=== PATIENT | female | born 1980 | race Caucasian/White ===

== ENCOUNTER → 2016-12-30 | Outpatient (REF) | payer OTHER | LOC: M LABNEURO 11:36 | PROVIDERS: ATTEND Physician Assistant Medical | DX: R51 Headache (principal); M79.641 Pain in right hand ==

== ENCOUNTER 2017-01-05 09:52 | Emergency (ER) | payer OTHER ==
[~2017-01-05] VITALS: Ht 165.1 cm; Wt 79.4 kg
[2017-01-05] MEDS ORDERED: VITA250011 SL (10:11)
[2017-01-05] MEDS ORDERED: OXYC15TA76 PO (10:11)
[2017-01-05] MEDS ORDERED: CALC600T7 PO (10:11)
[2017-01-05] MEDS ORDERED: RIBO100C PO (10:11)
[2017-01-05] MEDS ORDERED: MULT1TAB10 PO (10:11)
[2017-01-05] MEDS ORDERED: VALT500T PO (10:11)
[2017-01-05] MEDS ORDERED: ESTE500T4 PO (10:11)
[2017-01-05] MEDS ORDERED: MAGN250T11 PO (10:11)
[2017-01-05] MEDS ORDERED: CETI10TA PO (10:11)
[2017-01-05] MEDS ORDERED: INTRTAB PO (10:11)
[2017-01-05] MEDS ORDERED: OMEP40CA2 PO (10:11)
[2017-01-05] MEDS ORDERED: CYCL5TA PO (10:11)
[2017-01-05] MEDS ORDERED: COLA100C PO (10:11)
[2017-01-05] MEDS ORDERED: SING4GRA PO (10:11)
[2017-01-05] MEDS ORDERED: MIRA33504 PO (10:11)
[2017-01-05] MEDS ORDERED: VITA500046 PO (10:12)
--- NOTE | 2017-01-05 11:23 | REP ---
Right lower extremity Duplex Doppler venous ultrasound: Real time compression and duplex Doppler interrogation of the right lower extremity deep venous system is performed. The right common femoral, superficial femoral and popliteal veins are fully compressible with transducer pressure and demonstrate normal spontaneous and phasic flow, without evidence of deep venous thrombosis. Impression: No evidence of deep venous thrombosis of the right lower extremity femoral popliteal venous system. Signed by Cordell Glynn MD 01/05/2017 11:14 A
[2017-01-05 11:40] VITALS: BP 124/70
== END 2017-01-05 11:42 | disposition home or self-care (01) ==
LOC: M ED 10:54
DX: M79.651 Pain in right thigh (principal); E73.9 Lactose intolerance, unspecified; Z79.899 Other long term (current) drug therapy

== ENCOUNTER 2017-01-17 19:00 | Emergency (ER) | payer OTHER ==
[~2017-01-17] VITALS: Ht 165.1 cm; Wt 77.1 kg
[~2017-01-17 19:00] MED LIST: CALC600T7 PO; CETI10TA PO; COLA100C3 PO; CYCL5TA PO; ESTE500T4 PO; INTRTAB PO; MAGN250T11 PO; MIRA33504 PO; MULT1TAB10 PO; OMEP40CA2 PO; OXYC15TA76 PO; RIBO100C PO; SING4GRA PO; VALT500T PO; VANCOMYCIN HCL 1,000 MG, VIAL MATE ADAPTER 1 EACH in D5W 250 ML IV ONE; VITA250011 SL; VITA500046 PO
[2017-01-17] MEDS ORDERED: cefTRIAXone SOD 2 GM in D5W MINI-BAG PLUS 50 ML IV ONE (19:45)
[2017-01-17] MEDS ORDERED: NS 1,000 ML IV SCH (19:45)
[2017-01-17 20:07] LABS: BASO % 0.3 % (0.0-1.0); EOS # 0.3 K/mm3 (0.0-0.50); LARGE UNSTAINED CELL # 0.1 K/mm3 (0.0-0.4); LARGE UNSTAINED CELL % 0.8 % (0.0-4.0); LYMPH # 2.2 K/mm3 (1.5-4.5); LYMPH % 16.2 % (24.0-44.0); MEAN CORPUSCULAR HEMOGLOBIN 35.4 pg (27.0-33.0); MEAN CORPUSCULAR HGB CONC 33.2 g/dl (32.0-36.5); MEAN CORPUSCULAR VOLUME 106.7 fl (80.0-96.0); MONO # 0.6 K/mm3 (0.0-0.8); MONO % 4.4 % (0.0-5.0); NEUTROPHILS # 9.6 K/mm3 (1.8-7.7); NEUTROPHILS % 76.2 % (36.0-66.0); PLATELET COUNT, AUTOMATED 276 k/mm3 (150-450); RED CELL DISTRIBUTION WIDTH 13.4 % (11.5-14.5); WHITE BLOOD COUNT 12.6 K/mm3 (4.0-10.0)
[2017-01-17] MEDS ORDERED: VANCOMYCIN HCL 1,000 MG, VIAL MATE ADAPTER 1 EACH in D5W 250 ML IV ONE (20:15)
[2017-01-17 20:23] LABS: ANION GAP 6 MEQ/L (8-16); BLOOD UREA NITROGEN 7 MG/DL (7-18); CALCIUM LEVEL 8.6 MG/DL (8.5-10.1); CARBON DIOXIDE LEVEL 29 MEQ/L (21-32); CHLORIDE LEVEL 104 MEQ/L (98-107); CREATININE FOR GFR 0.68 MG/DL (0.55-1.02); GLOMERULAR FILTRATION RATE > 60.0 (>60); GLUCOSE, FASTING 106 MG/DL (70-105); SODIUM LEVEL 139 MEQ/L (136-145)
[2017-01-17 20:28] LABS: ERYTHROCYTE SEDIMENTATION RATE 71 mm/hr (0-20)
[2017-01-17] MEDS ORDERED: ISOVUE-370 76% 100ML VIAL (Q9967) As Ordered ONE (20:51)
--- NOTE | 2017-01-17 21:50 | REPUSA ---
CT of the abdomen and pelvis with contrast Clinical statement: Pain. Possible abdominal wall abscess. Technique: Multiple axial CT images were obtained from the base of the lungs through the floor of the pelvis utilizing 5 mm axial slices after administration of nonionic intravenous contrast. Coronal an d sagittal reconstructions were also obtained. Comparison: 11/17/2015. Findings: Chest: The visualized lung bases are clear. Abdomen: There is a loculated fluid collection in the midline of the anterior abdominal wall around t he umbilicus, measuring 2.2 x 11.4 cm. A second loculated fluid collection is seen at this same level in the right lateral subcutaneous tissues, measuring 6.4 x 3.1 cm. Surgical drains in place within t he lateral fluid collection. Diffuse infiltrative changes are also seen within the abdominal wall. Th e liver, spleen, pancreas, kidneys, and adrenal glands are unremarkable. The aorta is within normal l imits. There is no evidence of abdominal lymphadenopathy or ascites. Pelvis: The bowel is unremarkable, with no obstructive or inflammatory changes. The urinary bladder i s within normal limits. The other pelvic structures appear grossly intact. There is no evidence of pe lvic lymphadenopathy or ascites. Bones: There are no suspicious osseous abnormalities seen. Impression: 1. At least two large subcutaneous loculated fluid collections in the abdominal wall as described, on e in the midline adjacent to the umbilicus, and one in the right lateral abdominal wall. A surgical d rain is seen within the lateral fluid collection. Diffuse infiltrative changes are also noted. The fi ndings could represent abscesses. Follow-up is suggested as clinically indicated. 2. No acute intra-abdominal abnormality appreciated.
[2017-01-17] MEDS ORDERED: BACT800T5 PO (22:44)
[2017-01-17] MEDS ORDERED: KEFL500C7 PO (22:44)
[2017-01-17 22:57] VITALS: BP 111/62
== END 2017-01-17 23:03 | disposition home or self-care (01) ==
LOC: M ED 20:04
DX: L02.211 Cutaneous abscess of abdominal wall (principal)
CPT/HCPCS: 74177; 80048; 85025; 85652; 86140; 96361; 96365; 96367; 96375; 99282; J0696; J3370; Q9967

== ENCOUNTER → 2017-02-20 | Outpatient (REF) | payer OTHER ==
[~2017-02-20] MED LIST changes: +BACT800T5 PO; +KEFL500C7 PO; -VANCOMYCIN HCL 1,000 MG, VIAL MATE ADAPTER 1 EACH in D5W 250 ML IV ONE
== END ==
LOC: M LAB REF 13:05 → EEVIPCON 13:05
PROVIDERS: ATTEND Physician Assistant Medical
DX: L02.91 Cutaneous abscess, unspecified (principal)

== ENCOUNTER → 2017-09-14 | Outpatient (REF) | payer OTHER ==
[~2017-09-14] MED LIST changes: -COLA100C3 PO; +COLA100C5 PO; -CYCL5TA PO; +CYCL5TAB PO; +KEFL500C17 PO; -KEFL500C7 PO
== END ==
LOC: M LAB REF 18:08
PROVIDERS: ATTEND Physician Assistant
DX: R30.0 Dysuria (principal)

== ENCOUNTER → 2017-11-23 | Outpatient (CLI) | payer OTHER ==
[~2017-11-23] MED LIST changes: -BACT800T5 PO; -CALC600T7 PO; -CETI10TA PO; -COLA100C5 PO; -CYCL5TAB PO; +E-Z-GAS II EFFERVESCENT PACKET (SODIUM BICARB./CITRIC ACID/SIMETHICONE) As Ordered; +E-Z-HD 98% w/w 340GM SUSP BTL As Ordered; +E-Z-PAQUE 96% w/w SUSP 176GM BTL As Ordered; -ESTE500T4 PO; -INTRTAB PO; -KEFL500C17 PO; -MAGN250T11 PO; -MIRA33504 PO; -MULT1TAB10 PO; -OMEP40CA2 PO; -OXYC15TA76 PO; -RIBO100C PO; -SING4GRA PO; -VALT500T PO; -VITA250011 SL; -VITA500046 PO
== END ==
LOC: M RAD 09:30
DX: K21.9 Gastro-esophageal reflux disease without esophagitis (principal); Z98.84 Bariatric surgery status
CPT/HCPCS: 74241

== ENCOUNTER 2017-12-17 10:35 | Outpatient (RCR) | payer OTHER | END 2018-01-16 | LOC: M PT 10:35 | DX: Z51.89 Encounter for other specified aftercare (principal); M54.2 Cervicalgia; M54.6 Pain in thoracic spine ==

== ENCOUNTER → 2018-03-09 | Outpatient (REF) | payer OTHER ==
[2018-03-09 22:05] LABS: APPEARANCE, URINE CLEAR (CLEAR); BACTERIA, URINE AUTO 2+ (NEGATIVE); BILIRUBIN, URINE AUTO NEGATIVE (NEGATIVE); BLOOD, URINE BLOOD 1+ (NEGATIVE); COLOR, URINE STRAW (YELLOW); GLUCOSE, URINE (UA) AUTO NEGATIVE (NEGATIVE); KETONE, URINE AUTO NEGATIVE (NEGATIVE); LEUKOCYTE ESTERASE, URINE AUTO 1+ (NEGATIVE); NITRITE, URINE AUTO NEGATIVE (NEGATIVE); PROTEIN, URINE AUTO NEGATIVE (NEGATIVE); RBC, URINE AUTO 4 /HPF (0-3); SPECIFIC GRAVITY URINE AUTO 1.004 (1.002-1.035); SQUAMOUS EPITHELIAL CELL UR AU 0 /HPF (0-6); UROBILINOGEN, URINE AUTO 0.2 mg/dL (0.0-2.0); WBC, URINE AUTO 19 /HPF (0-3)
== END ==
LOC: M LAB REF 21:24
DX: N39.0 Urinary tract infection, site not specified (principal)

== ENCOUNTER 2018-05-11 09:58 | Outpatient (RCR) | payer OTHER | END 2018-05-18 | LOC: M PT 09:58 | DX: Z51.89 Encounter for other specified aftercare (principal); M54.30 Sciatica, unspecified side | CPT/HCPCS: 97010 ==

== ENCOUNTER 2018-05-20 09:44 | Outpatient (RCR) | payer OTHER | END 2018-06-18 | LOC: M PT 09:44 | DX: Z51.89 Encounter for other specified aftercare (principal); M54.30 Sciatica, unspecified side | CPT/HCPCS: 97110 ==

== ENCOUNTER 2018-09-11 08:35 | Emergency (ER) | payer OTHER ==
[2018-09-11 09:16] LABS: BASO % 0.7 % (0.0-1.0); EOS # 0.1 10^3/uL (0.0-0.50); EOS % 2.3 % (0.0-3.0); HEMATOCRIT 41.4 % (36.0-47.0); HEMOGLOBIN 14.5 g/dl (12.0-15.5); IMMATURE GRANULOCYTE % 0.2 % (0-3.0); LYMPH # 2.4 10^3/uL (1.5-4.5); LYMPH % 41.9 % (24.0-44.0); MEAN CORPUSCULAR HEMOGLOBIN 36.3 pg (27.0-33.0); MEAN CORPUSCULAR VOLUME 103.5 fl (80.0-96.0); MONO # 0.4 10^3/uL (0.0-0.8); MONO % 7.1 % (0.0-5.0); NEUTROPHILS # 2.7 10^3/uL (1.8-7.7); NEUTROPHILS % 47.8 % (36.0-66.0); PLATELET COUNT, AUTOMATED 204 10^3/uL (150-450); RED CELL DISTRIBUTION WIDTH 11.7 % (11.5-14.5); WHITE BLOOD COUNT 5.6 10^3/uL (4.0-10.0)
[2018-09-11] MEDS: NS 1,000 ML IV (09:27)
[2018-09-11 09:32] LABS: ALBUMIN 3.9 GM/DL (3.2-5.2); ALBUMIN/GLOBULIN RATIO 1.15 (1.00-1.93); ALKALINE PHOSPHATASE 41 U/L (45-117); ALT/SGPT 23 U/L (12-78); AMYLASE 51 U/L (25-115); ANION GAP 6 MEQ/L (8-16); AST/SGOT 25 U/L (7-37); BILIRUBIN,DIRECT 0.1 MG/DL (0.0-0.2); BILIRUBIN,TOTAL 0.4 MG/DL (0.2-1.0); BLOOD UREA NITROGEN 15 MG/DL (7-18); CARBON DIOXIDE LEVEL 28 MEQ/L (21-32); CHLORIDE LEVEL 108 MEQ/L (98-107); CREATININE FOR GFR 0.84 MG/DL (0.55-1.30); GLOMERULAR FILTRATION RATE > 60.0 (>60); GLUCOSE, FASTING 85 MG/DL (70-100); KETONE, URINE AUTO RFX NEGATIVE (NEGATIVE); LEUKOCYTE ESTERASE UR AUTO RFX NEGATIVE (NEGATIVE); LIPASE 163 U/L (73-393); NITRITE, URINE AUTO RFX NEGATIVE (NEGATIVE); POTASSIUM SERUM 3.9 MEQ/L (3.5-5.1); RBC, URINE AUTO RFX 1 /HPF (0-3); SODIUM LEVEL 142 MEQ/L (136-145); SPECIFIC GRAVITY UR AUTO RFX 1.003 (1.002-1.035); SQUAM EPITHELIAL CELL UR AURFX 0 /HPF (0-6); TOTAL PROTEIN 7.3 GM/DL (6.4-8.2); WBC, URINE AUTO RFX 1 /HPF (0-3)
[2018-09-11] MEDS ORDERED: ISOVUE-370 76% 100ML VIAL (Q9967) As Ordered (09:51)
== END 2018-09-11 12:50 | disposition home or self-care (01) ==
LOC: M ED 08:35
DX: D25.9 Leiomyoma of uterus, unspecified (principal); F33.9 Major depressive disorder, recurrent, unspecified; F41.9 Anxiety disorder, unspecified; K21.9 Gastro-esophageal reflux disease without esophagitis; Z98.84 Bariatric surgery status; Z88.8 Allergy status to other drugs, medicaments and biological substances; E73.9 Lactose intolerance, unspecified
CPT/HCPCS: Q9967

== ENCOUNTER → 2018-11-22 | Outpatient (REF) | payer OTHER ==
[~2018-11-22] MED LIST changes: +BACT800T5 PO; +CALC600T7 PO; +CETI10TA PO; +COLA100C5 PO; +CYCL5TAB PO; -E-Z-GAS II EFFERVESCENT PACKET (SODIUM BICARB./CITRIC ACID/SIMETHICONE) As Ordered; -E-Z-HD 98% w/w 340GM SUSP BTL As Ordered; -E-Z-PAQUE 96% w/w SUSP 176GM BTL As Ordered; +ESTE500T4 PO; +FLUTISP; +GABA-843; +INTR1TAB PO; +KEFL500C17 PO; +MAGN250T11 PO; +MIRA33504 PO; +MULT1TAB10 PO; +OMEP40CA2 PO; +OXYC15TA76 PO; +RIBO100C PO; +SING4GRA PO; +TIZA2TA; +VALT500T PO; +VITA250011 SL; +VITA500046 PO; +ZONI100C2
== END ==
LOC: M LAB REF 16:12
PROVIDERS: ATTEND Nurse Practitioner Family
DX: R10.2 Pelvic and perineal pain (principal)

== ENCOUNTER → 2019-02-23 | Outpatient (CLI) | payer OTHER ==
--- NOTE | 2019-02-24 03:22 | REP ---
Clinical: Fall with right elbow pain. Technique: AP, lateral, bilateral oblique views of the right elbow. Findings: No acute fracture or dislocation is appreciated. Joint spaces and surrounding soft tissues appear normal. Lateral view demonstrates normal positioning to the anterior and posterior fat pads without evidence for effusion/hemarthrosis. No subcutaneous emphysema or foreign body identified. Impression: Normal right elbow radiographs. No acute fracture or dislocation. Electronically Signed by Kevin Sheffield MD 02/24/2019 03:14 A
== END ==
LOC: M RAD 09:49
PROVIDERS: ATTEND Physician Assistant Medical
DX: S50.01XA Contusion of right elbow, initial encounter (principal); X58.XXXA Exposure to other specified factors, initial encounter; Y92.89 Other specified places as the place of occurrence of the external cause

== ENCOUNTER → 2019-03-30 | Outpatient (REF) | payer OTHER ==
[2019-03-30 21:55] LABS: APPEARANCE, URINE CLEAR (CLEAR); BACTERIA, URINE AUTO 2+ (NEGATIVE); BILIRUBIN, URINE AUTO NEGATIVE (NEGATIVE); BLOOD, URINE BLOOD NEGATIVE (NEGATIVE); COLOR, URINE STRAW (YELLOW); GLUCOSE, URINE (UA) AUTO NEGATIVE (NEGATIVE); KETONE, URINE AUTO NEGATIVE (NEGATIVE); LEUKOCYTE ESTERASE, URINE AUTO TRACE (NEGATIVE); NITRITE, URINE AUTO NEGATIVE (NEGATIVE); PROTEIN, URINE AUTO NEGATIVE (NEGATIVE); RBC, URINE AUTO 0 /HPF (0-3); SPECIFIC GRAVITY URINE AUTO 1.004 (1.002-1.035); SQUAMOUS EPITHELIAL CELL UR AU 1 /HPF (0-6); TRANSITIONAL EPITHELIAL AUTO <1 /HPF; UROBILINOGEN, URINE AUTO 0.2 mg/dL (0.0-2.0); WBC, URINE AUTO 1 /HPF (0-3)
== END ==
LOC: M LAB REF 09:10
PROVIDERS: ATTEND Physician Assistant
DX: N39.0 Urinary tract infection, site not specified (principal)

== ENCOUNTER → 2019-07-25 | Outpatient (CLI) | payer OTHER ==
[2019-07-25 08:44] LABS: BASO % 0.4 % (0.0-1.0); EOS # 0.1 10^3/uL (0.0-0.5); EOS % 1.6 % (0.0-3.0); HEMATOCRIT 40.4 % (36.0-47.0); HEMOGLOBIN 13.8 g/dl (12.0-15.5); LYMPH # 2.8 10^3/uL (1.5-5.0); LYMPH % 40.5 % (24.0-44.0); MEAN CORPUSCULAR HEMOGLOBIN 36.6 pg (27.0-33.0); MEAN CORPUSCULAR HGB CONC 34.2 g/dl (32.0-36.5); MEAN CORPUSCULAR VOLUME 107.2 fl (80.0-96.0); MONO # 0.4 10^3/uL (0.0-0.8); MONO % 5.6 % (0.0-5.0); NEUTROPHILS # 3.6 10^3/uL (1.5-8.5); NEUTROPHILS % 51.6 % (36.0-66.0); PLATELET COUNT, AUTOMATED 195 10^3/uL (150-450); RED BLOOD COUNT 3.77 10^6/uL (4.00-5.40)
[2019-07-25 09:23] LABS: ALBUMIN 3.9 GM/DL (3.2-5.2); ALT/SGPT 15 U/L (12-78); BILIRUBIN,TOTAL 0.4 MG/DL (0.2-1.0); BLOOD UREA NITROGEN 14 MG/DL (7-18); CALCIUM LEVEL 9.2 MG/DL (8.5-10.1); CARBON DIOXIDE LEVEL 25 MEQ/L (21-32); CHLORIDE LEVEL 106 MEQ/L (98-107); CHOLESTEROL LEVEL 178 MG/DL (<200); CHOLESTEROL RISK RATIO 2.253 (<5); GLOMERULAR FILTRATION RATE > 60.0 (>60); GLUCOSE, FASTING 80 MG/DL (70-100); HDL CHOLESTEROL 79 MG/DL (>40); IRON (FE) 152 UG/DL (50-170); LDL CHOLESTEROL 79 MG/DL (<100); NON-HDL-C 99 MG/DL; SODIUM LEVEL 139 MEQ/L (136-145); THYROID STIMULATING HORMONE 0.868 uIU/ML (0.358-3.740); TOTAL PROTEIN 6.9 GM/DL (6.4-8.2); TRIGLYCERIDES LEVEL 101 MG/DL (<150)
[2019-07-25 10:49] LABS: TOTAL 25(OH) VITAMIN D 40.8 NG/ML (30.0-100.0); VITAMIN B12 LEVEL 1115 PG/ML (247-911)
== END ==
LOC: M LAB 08:17
PROVIDERS: ATTEND Family Medicine Addiction Medicine
DX: D64.9 Anemia, unspecified (principal)

== ENCOUNTER → 2019-11-03 | Outpatient (REF) | payer OTHER ==
[~2019-11-03] MED LIST changes: -OMEP40CA2 PO; +OMEP40CA97 PO; +ZONI100C17; -ZONI100C2
[2019-11-03 13:47] LABS: BASO % 0.6 % (0.0-1.0); EOS # 0.1 10^3/uL (0.0-0.5); EOS % 1.1 % (0.0-3.0); HEMATOCRIT 40.7 % (36.0-47.0); HEMOGLOBIN 13.2 g/dl (12.0-15.5); LYMPH # 2.4 10^3/uL (1.5-5.0); LYMPH % 43.6 % (24.0-44.0); MEAN CORPUSCULAR HEMOGLOBIN 34.7 pg (27.0-33.0); MEAN CORPUSCULAR HGB CONC 32.4 g/dl (32.0-36.5); MEAN CORPUSCULAR VOLUME 107.1 fl (80.0-96.0); MONO # 0.4 10^3/uL (0.0-0.8); MONO % 6.7 % (0.0-5.0); NEUTROPHILS # 2.6 10^3/uL (1.5-8.5); NEUTROPHILS % 47.8 % (36.0-66.0); PLATELET COUNT, AUTOMATED 210 10^3/uL (150-450); WHITE BLOOD COUNT 5.4 10^3/uL (4.0-10.0)
[2019-11-03 14:14] LABS: ERYTHROCYTE SEDIMENTATION RATE 106 mm/hr (0-20)
[2019-11-05 00:06] LABS: ANTINUCLEAR ANTIBODIES DIRECT Negative (Negative)
[2019-11-08 11:35] LABS: DRVV SCREEN 36.4 SEC
[2019-11-08 11:43] LABS: PTT LUPUS TYPE ANTICOAG SCREEN 0.9 (0-1.2)
== END ==
LOC: M LABNEURO 13:05
PROVIDERS: ATTEND Physician Assistant Medical
DX: R51 Headache (principal); M25.549 Pain in joints of unspecified hand

== ENCOUNTER → 2019-11-28 | Outpatient (CLI) | payer OTHER | LOC: M LAB 08:39 | PROVIDERS: ATTEND Physician Assistant Medical | DX: M25.549 Pain in joints of unspecified hand (principal) ==

== ENCOUNTER → 2019-11-28 | Outpatient (CLI) | payer OTHER ==
[2019-11-28 09:19] LABS: BASO % 0.5 % (0.0-1.0); EOS # 0.1 10^3/uL (0.0-0.5); EOS % 1.3 % (0.0-3.0); HEMATOCRIT 39.9 % (36.0-47.0); HEMOGLOBIN 13.5 g/dl (12.0-15.5); LYMPH # 2.9 10^3/uL (1.5-5.0); MEAN CORPUSCULAR HEMOGLOBIN 35.6 pg (27.0-33.0); MEAN CORPUSCULAR HGB CONC 33.8 g/dl (32.0-36.5); MEAN CORPUSCULAR VOLUME 105.3 fl (80.0-96.0); MONO # 0.5 10^3/uL (0.0-0.8); MONO % 6.8 % (0.0-5.0); NEUTROPHILS # 4.2 10^3/uL (1.5-8.5); NEUTROPHILS % 54.1 % (36.0-66.0); PLATELET COUNT, AUTOMATED 216 10^3/uL (150-450); RED BLOOD COUNT 3.79 10^6/uL (4.00-5.40); WHITE BLOOD COUNT 7.8 10^3/uL (4.0-10.0)
[2019-11-28 10:03] LABS: ALBUMIN 3.8 GM/DL (3.2-5.2); ALT/SGPT 15 U/L (12-78); BILIRUBIN,TOTAL 0.5 MG/DL (0.2-1.0); BLOOD UREA NITROGEN 11 MG/DL (7-18); CALCIUM LEVEL 9.6 MG/DL (8.5-10.1); CARBON DIOXIDE LEVEL 26 MEQ/L (21-32); CHLORIDE LEVEL 108 MEQ/L (98-107); CHOLESTEROL LEVEL 185 MG/DL (<200); CHOLESTEROL RISK RATIO 2.341 (<5); CREATININE FOR GFR 0.73 MG/DL (0.55-1.30); FERRITIN 13 NG/ML (8-252); GLOMERULAR FILTRATION RATE > 60.0 (>58); GLUCOSE, FASTING 85 MG/DL (70-100); HDL CHOLESTEROL 79 MG/DL (>40); IRON (FE) 224 UG/DL (50-170); LDL CHOLESTEROL 80 MG/DL (<100); NON-HDL-C 106 MG/DL; POTASSIUM SERUM 4.1 MEQ/L (3.5-5.1); SODIUM LEVEL 141 MEQ/L (136-145); TOTAL PROTEIN 6.7 GM/DL (6.4-8.2); TRIGLYCERIDES LEVEL 132 MG/DL (<150)
[2019-11-28 10:50] LABS: HEMOGLOBIN A1c 4.8 %
[2019-11-28 12:14] LABS: TOTAL 25(OH) VITAMIN D 41.7 NG/ML (30.0-100.0)
[2019-11-28 12:15] LABS: VITAMIN B12 LEVEL 596 PG/ML (247-911)
== END ==
LOC: M LAB 08:35
PROVIDERS: ATTEND Nurse Practitioner Family
DX: Z00.01 Encounter for general adult medical examination with abnormal findings (principal); D64.9 Anemia, unspecified

== ENCOUNTER → 2019-12-20 | Outpatient (REF) | payer OTHER | LOC: M SFHCRHEU 10:31 | PROVIDERS: ATTEND Internal Medicine | DX: M25.50 Pain in unspecified joint (principal) ==

== ENCOUNTER → 2020-07-12 | Outpatient (CLI) | payer OTHER ==
[~2020-07-12] MED LIST changes: +CALC-212 PO; -CALC600T7 PO; +OXYC-1 PO; -OXYC15TA76 PO
[2020-07-12 09:12] LABS: BASO % 0.3 % (0.0-1.0); EOS # 0.1 10^3/uL (0.0-0.5); EOS % 1.6 % (0.0-3.0); HEMOGLOBIN 13.1 g/dl (12.0-15.5); LYMPH # 2.6 10^3/uL (1.5-5.0); LYMPH % 38.3 % (24.0-44.0); MEAN CORPUSCULAR HEMOGLOBIN 36.1 pg (27.0-33.0); MEAN CORPUSCULAR HGB CONC 33.6 g/dl (32.0-36.5); MEAN CORPUSCULAR VOLUME 107.4 fl (80.0-96.0); MONO # 0.5 10^3/uL (0.0-0.8); MONO % 7.4 % (0.0-5.0); NEUTROPHILS # 3.6 10^3/uL (1.5-8.5); NEUTROPHILS % 52.1 % (36.0-66.0); PLATELET COUNT, AUTOMATED 204 10^3/uL (150-450); RED BLOOD COUNT 3.63 10^6/uL (4.00-5.40); WHITE BLOOD COUNT 6.9 10^3/uL (4.0-10.0)
[2020-07-12 09:35] LABS: HEMOGLOBIN A1c 5.2 %
[2020-07-12 09:45] LABS: ALBUMIN 3.6 GM/DL (3.2-5.2); ALT/SGPT 19 U/L (12-78); BILIRUBIN,TOTAL 0.5 MG/DL (0.2-1.0); BLOOD UREA NITROGEN 13 MG/DL (7-18); CARBON DIOXIDE LEVEL 25 MEQ/L (21-32); CHLORIDE LEVEL 109 MEQ/L (98-107); CHOLESTEROL LEVEL 169 MG/DL (<200); CHOLESTEROL RISK RATIO 1.942 (<5); CREATININE FOR GFR 0.74 MG/DL (0.55-1.30); GLOMERULAR FILTRATION RATE > 60.0 (>58); GLUCOSE, FASTING 87 MG/DL (70-100); HDL CHOLESTEROL 87 MG/DL (>40); IRON (FE) 206 UG/DL (50-170); LDL CHOLESTEROL 63 MG/DL (<100); NON-HDL-C 82 MG/DL; POTASSIUM SERUM 4.1 MEQ/L (3.5-5.1); SODIUM LEVEL 141 MEQ/L (136-145); TOTAL PROTEIN 6.6 GM/DL (6.4-8.2); TRIGLYCERIDES LEVEL 94 MG/DL (<150)
[2020-07-12 09:48] LABS: TOTAL 25(OH) VITAMIN D 28.9 NG/ML (30.0-100.0); VITAMIN B12 LEVEL 438 PG/ML (247-911)
== END ==
LOC: M LAB 08:25
PROVIDERS: ATTEND Family Medicine
DX: R79.0 Abnormal level of blood mineral (principal)

== ENCOUNTER → 2020-08-16 | Outpatient (CLI) | payer OTHER ==
[2020-08-16 09:31] LABS: BASO % 0.4 % (0.0-1.0); EOS # 0.1 10^3/uL (0.0-0.5); EOS % 1.4 % (0.0-3.0); HEMATOCRIT 38.3 % (36.0-47.0); HEMOGLOBIN 12.6 g/dl (12.0-15.5); LYMPH % 42.7 % (24.0-44.0); MEAN CORPUSCULAR HEMOGLOBIN 34.8 pg (27.0-33.0); MEAN CORPUSCULAR HGB CONC 32.9 g/dl (32.0-36.5); MEAN CORPUSCULAR VOLUME 105.8 fl (80.0-96.0); MONO # 0.5 10^3/uL (0.0-0.8); MONO % 7.3 % (0.0-5.0); NEUTROPHILS # 3.4 10^3/uL (1.5-8.5); NEUTROPHILS % 48.1 % (36.0-66.0); PLATELET COUNT, AUTOMATED 204 10^3/uL (150-450); RED BLOOD COUNT 3.62 10^6/uL (4.00-5.40); WHITE BLOOD COUNT 7.1 10^3/uL (4.0-10.0)
[2020-08-16 10:05] LABS: ALBUMIN 3.6 GM/DL (3.2-5.2); ALT/SGPT 12 U/L (12-78); BILIRUBIN,TOTAL 0.3 MG/DL (0.2-1.0); BLOOD UREA NITROGEN 13 MG/DL (7-18); CALCIUM LEVEL 8.9 MG/DL (8.5-10.1); CARBON DIOXIDE LEVEL 25 MEQ/L (21-32); CHLORIDE LEVEL 109 MEQ/L (98-107); CREATININE FOR GFR 0.75 MG/DL (0.55-1.30); FERRITIN 10 NG/ML (8-252); GLOMERULAR FILTRATION RATE > 60.0 (>58); GLUCOSE, FASTING 86 MG/DL (70-100); IRON (FE) 118 UG/DL (50-170); PERCENT SATURATION 31.3 % (13.2-45.0); POTASSIUM SERUM 3.9 MEQ/L (3.5-5.1); SODIUM LEVEL 140 MEQ/L (136-145); TOTAL IRON BINDING CAPACITY 377 UG/DL (250-450); TOTAL PROTEIN 6.5 GM/DL (6.4-8.2)
[2020-08-16 11:08] LABS: FOLATE > 24.0 NG/ML; VITAMIN B12 LEVEL 372 PG/ML
== END ==
LOC: M LAB 08:29
PROVIDERS: ATTEND Physician Assistant
DX: R79.0 Abnormal level of blood mineral (principal); D64.9 Anemia, unspecified

== ENCOUNTER → 2020-12-24 | Outpatient (CLI) | payer OTHER ==
[~2020-12-24] MED LIST changes: +GABA-282; -GABA-843
[2020-12-24 10:37] LABS: ALBUMIN 3.9 GM/DL (3.2-5.2); ALT/SGPT 16 U/L (12-78); BILIRUBIN,TOTAL 0.5 MG/DL (0.2-1.0); BLOOD UREA NITROGEN 11 MG/DL (7-18); CALCIUM LEVEL 9.5 MG/DL (8.5-10.1); CARBON DIOXIDE LEVEL 27 MEQ/L (21-32); CHLORIDE LEVEL 106 MEQ/L (98-107); CREATININE FOR GFR 0.82 MG/DL (0.55-1.30); FERRITIN 10 NG/ML (8-252); GLOMERULAR FILTRATION RATE > 60.0 (>58); GLUCOSE, FASTING 78 MG/DL (70-100); IRON (FE) 106 UG/DL (50-170); PERCENT SATURATION 24.5 % (13.2-45.0); POTASSIUM SERUM 4.3 MEQ/L (3.5-5.1); SODIUM LEVEL 139 MEQ/L (136-145); TOTAL IRON BINDING CAPACITY 433 UG/DL (250-450); TOTAL PROTEIN 6.9 GM/DL (6.4-8.2); VITAMIN B12 LEVEL 608 PG/ML
[2020-12-24 10:38] LABS: FOLATE > 24.0 NG/ML
== END ==
LOC: M LAB 08:52
PROVIDERS: ATTEND Physician Assistant
DX: Z98.84 Bariatric surgery status (principal)

== ENCOUNTER → 2020-12-31 | Outpatient (REF) | payer OTHER | LOC: M LAB REF 16:24 | PROVIDERS: ATTEND Physician Assistant | DX: R61 Generalized hyperhidrosis (principal) ==

== ENCOUNTER → 2021-03-02 | Outpatient (CLI) | payer OTHER ==
[~2021-03-02] MED LIST changes: +DYMI137S; +GABA-283 PO; +TIZA2CAP PO; +TRAZ-252 PO; +ZONI100C17 PO
== END ==
LOC: M LABSMTC 09:00
PROVIDERS: ATTEND Anesthesiology
DX: Z01.818 Encounter for other preprocedural examination (principal); Z20.822 Contact with and (suspected) exposure to COVID-19

== ENCOUNTER 2021-03-07 10:16 | Day surgery (SDC) | payer OTHER ==
[~2021-03-07] VITALS: Ht 162.6 cm; Wt 92.1 kg
[~2021-03-07 10:16] MED LIST changes: +NS 1,000 ML IV ONE
[2021-03-07] MEDS ORDERED: propofoL 200 MG/20 ML VIAL As Ordered ONE ×2 (12:00→12:08)
[2021-03-07] MEDS ORDERED: LIDOCAINE 2% 100MG/5ML SDV (FOR ANES.) As Ordered ONE (12:00)
[2021-03-07] MEDS ORDERED: fentaNYL 100 MCG/2 ML INJECTION (J3010) As Ordered ONE (12:01)
--- NOTE | 2021-03-07 12:14 | ROOR ---
Patient Name: Simi Griffith Procedure Date: 03/07/2021 12:03 PM Date of : 1980 Age: 40 Room: [facility] Gender: Female Note Status: Finalized Procedure: Upper GI endoscopy Indications: Suspected esophageal reflux Providers: Jeff Jean Jr, MD Referring MD: Saul Paredes Requesting Provider: Medicines: Propofol per Anesthesia Complications: No immediate complications. Procedure: Pre-Anesthesia Assessment: - Prior to the procedure, a History and Physical was performed, and patient medications and allergies were reviewed. The patient is competent. The risks and benefits of the procedure and the sedation options and risks were discussed with the patient. All questions were answered and informed consent was obtained. Patient identification and proposed procedure were verified by the physician and the nurse in the pre-procedure area and in the procedure room. Mental Status Examination: alert and oriented. Airway Examination: normal oropharyngeal airway and neck mobility. Respiratory Examination: clear to auscultation. CV Examination: normal. ASA Grade Assessment: II - A patient with mild systemic disease. After reviewing the risks and benefits, the patient was deemed in satisfactory condition to undergo the procedure. The anesthesia plan was to use moderate sedation / analgesia (conscious sedation). Immediately prior to administration of medications, the patient was re-assessed for adequacy to receive sedatives. The heart rate, respiratory rate, oxygen saturations, blood pressure, adequacy of pulmonary ventilation, and response to care were monitored throughout the procedure. The physical status of the patient was re-assessed after the procedure. The Endoscope was introduced through the mouth, and advanced to the jejunum. The upper GI endoscopy was accomplished without difficulty. The patient tolerated the procedure well. Findings: The upper third of the esophagus, middle third of the esophagus and lower third of the esophagus were normal. Evidence of a gastric bypass was found. A gastric pouch with a normal size was found. The staple line appeared intact. The gastrojejunal anastomosis was characterized by healthy appearing mucosa. This was traversed. The [id number] limb was characterized by healthy appearing mucosa. The examined jejunum was normal. Impression: - Normal upper third of esophagus, middle third of esophagus and lower third of esophagus. - Gastric bypass with a normal-sized pouch and intact staple line. Gastrojejunal anastomosis characterized by healthy appearing mucosa. - Normal examined jejunum. - No specimens collected. Recommendation: - Discharge patient to home (ambulatory). - Return to Bariatric clinic at appointment to be scheduled. Procedure Code(s): --- Professional --- 67671, Esophagogastroduodenoscopy, flexible, transoral; diagnostic, including collection of specimen(s) by brushing or washing, when performed (separate procedure) Diagnosis Code(s): --- Professional --- Z98.84, Bariatric surgery status CPT copyright 2019 [employer]. All rights reserved. The codes documented in this report are preliminary and upon tour guide review may be revised to meet current compliance requirements. Jeff Jean MD Jeff Jean Jr, MD 03/07/2021 12:14:34 PM Electronically signed by Jeff Jean Jr, MD Number of Addenda: 0 Note Initiated On: 03/07/2021 12:03 PM Estimated Blood Loss: Estimated blood loss: none.
[2021-03-07 12:30] VITALS: BP 131/73
== END 2021-03-07 12:36 | disposition home or self-care (01) ==
LOC: M OPP 10:16
PROVIDERS: ATTEND Surgery
DX: Z98.84 Bariatric surgery status (principal); Z87.19 Personal history of other diseases of the digestive system; E73.9 Lactose intolerance, unspecified; Z79.899 Other long term (current) drug therapy; Z88.8 Allergy status to other drugs, medicaments and biological substances
CPT/HCPCS: 43235; J3010

== ENCOUNTER → 2021-03-15 | Outpatient (CLI) | payer OTHER ==
[~2021-03-15] MED LIST changes: -NS 1,000 ML IV ONE
--- NOTE | 2021-03-15 10:56 | REPMRS ---
Patient History The patient states she had a clinical breast exam in 02/2021. No known family history of cancer. Taking hormonal contraceptives for 3 years. Patient states no breast complaints today. Patient has signed MRS History Sheet. Digital Woman Screen Mammo: March 15, 2021 - Exam #: [id number] Bilateral CC and MLO view(s) were taken. Technologist: Shellie Perez, Technologist Prior study comparison: March 09, 2020, bilateral digital mammo screening bilat, performed at [facility]. FINDINGS: There are scattered fibroglandular densities. The Volpara volumetric breast density category is:B. There has been no change in the appearance of the mammogram from the prior studies. There is a mild amount of scattered fibroglandular density which is fairly symmetric. There is no interval development of dominant mass, architectural distortion, or grouped microcalcification suggestive of malignancy. 3-D tomosynthesis shows no additional findings. Assessment: BI-RADS/ACR category 1 mammogram. Negative Mammogram. Recommendation Routine screening mammogram of both breasts in 1 year (for women over age 40). This patient's [facility] Lifetime Breast Cancer Risk is estimated at 12.4 %. This mammogram was interpreted with the aid of an FDA-approved computer-aided dectection system. Electronically Signed By: Tiburcio Rousseau MD 03/15/21 [id number]
== END ==
LOC: M WHC 09:52
PROVIDERS: ATTEND Obstetrics & Gynecology
DX: Z12.31 Encounter for screening mammogram for malignant neoplasm of breast (principal); Z13.820 Encounter for screening for osteoporosis

== ENCOUNTER → 2022-01-17 | Outpatient (CLI) | payer OTHER ==
[~2022-01-17] MED LIST changes: +OMEP40CA4 PO; -OMEP40CA97 PO
[2022-01-17 09:27] LABS: BASO % 0.3 % (0.0-1.0); EOS # 0.1 10^3/uL (0.0-0.5); EOS % 0.7 % (0.0-3.0); HEMATOCRIT 37.9 % (36.0-47.0); HEMOGLOBIN 12.8 g/dl (12.0-15.5); LYMPH # 2.7 10^3/uL (1.5-5.0); MEAN CORPUSCULAR HEMOGLOBIN 35.3 pg (27.0-33.0); MEAN CORPUSCULAR HGB CONC 33.8 g/dl (32.0-36.5); MEAN CORPUSCULAR VOLUME 104.4 fl (80.0-96.0); MONO # 0.4 10^3/uL (0.0-0.8); MONO % 5.8 % (2.0-8.0); NEUTROPHILS # 3.7 10^3/uL (1.5-8.5); NEUTROPHILS % 53.9 % (36.0-66.0); PLATELET COUNT, AUTOMATED 214 10^3/uL (150-450); RED BLOOD COUNT 3.63 10^6/uL (4.00-5.40); WHITE BLOOD COUNT 6.9 10^3/uL (4.0-10.0)
[2022-01-17 09:51] LABS: ALBUMIN 3.6 GM/DL (3.2-5.2); ALT/SGPT 19 U/L (12-78); BILIRUBIN,TOTAL 0.4 MG/DL (0.2-1.0); BLOOD UREA NITROGEN 11 MG/DL (7-18); CALCIUM LEVEL 9.4 MG/DL (8.5-10.1); CARBON DIOXIDE LEVEL 27 MEQ/L (21-32); CHLORIDE LEVEL 110 MEQ/L (98-107); CREATININE FOR GFR 0.72 MG/DL (0.55-1.30); GLOMERULAR FILTRATION RATE > 60.0 (>58); GLUCOSE, FASTING 89 MG/DL (70-100); POTASSIUM SERUM 4.5 MEQ/L (3.5-5.1); RHEUMATOID FACTOR QUANT < 10.0 IU/ML (<15.0); SODIUM LEVEL 141 MEQ/L (136-145); TOTAL PROTEIN 6.5 GM/DL (6.4-8.2)
[2022-01-17 09:54] LABS: ERYTHROCYTE SEDIMENTATION RATE 8 mm/hr (0-20)
[2022-01-17 10:34] LABS: TOTAL 25(OH) VITAMIN D 37.1 NG/ML (30.0-100.0)
[2022-01-17 10:35] LABS: FOLATE > 24.0 NG/ML; VITAMIN B12 LEVEL 372 PG/ML
[2022-01-18 23:09] LABS: ANTINUCLEAR ANTIBODIES DIRECT Negative (Negative)
== END ==
LOC: M LAB 08:21
PROVIDERS: ATTEND Psychiatry & Neurology Neurology
DX: R51.9 Headache, unspecified (principal)

== ENCOUNTER → 2022-02-05 | Outpatient (CLI) | payer OTHER ==
[2022-02-05 18:33] LABS: ALBUMIN 3.8 GM/DL (3.2-5.2); ALT/SGPT 19 U/L (12-78); BILIRUBIN,TOTAL 0.3 MG/DL (0.2-1.0); BLOOD UREA NITROGEN 15 MG/DL (7-18); CALCIUM LEVEL 9.3 MG/DL (8.5-10.1); CARBON DIOXIDE LEVEL 28 MEQ/L (21-32); CHLORIDE LEVEL 111 MEQ/L (98-107); CREATININE FOR GFR 0.85 MG/DL (0.55-1.30); GLOMERULAR FILTRATION RATE > 60.0 (>58); GLUCOSE, FASTING 91 MG/DL (70-100); MAGNESIUM LEVEL 2.1 MG/DL (1.8-2.4); POTASSIUM SERUM 4.4 MEQ/L (3.5-5.1); SODIUM LEVEL 142 MEQ/L (136-145); TOTAL PROTEIN 6.9 GM/DL (6.4-8.2)
== END ==
LOC: M LAB 17:23
PROVIDERS: ATTEND Nurse Practitioner Family
DX: R42 Dizziness and giddiness (principal)

== ENCOUNTER → 2022-04-18 | Outpatient (CLI) | payer OTHER ==
[~2022-04-18] MED LIST changes: -ZONI100C17; -ZONI100C17 PO; +ZONI100C67; +ZONI100C67 PO
== END ==
LOC: M WHC 08:58
PROVIDERS: ATTEND Obstetrics & Gynecology
DX: Z12.31 Encounter for screening mammogram for malignant neoplasm of breast (principal)

== ENCOUNTER → 2022-07-30 | Outpatient (CLI) | payer OTHER ==
[~2022-07-30] MED LIST changes: +MONT4GRA10 PO; -SING4GRA PO
[2022-07-30 11:09] LABS: RHEUMATOID FACTOR QUANT < 10.0 IU/ML (<15.0)
[2022-07-30 11:51] LABS: TOTAL 25(OH) VITAMIN D 45.4 NG/ML (30.0-100.0); VITAMIN B12 LEVEL 592 PG/ML (247-911)
== END ==
LOC: M LAB 09:28
PROVIDERS: ATTEND Psychiatry & Neurology Neurology
DX: R51.9 Headache, unspecified (principal); R41.3 Other amnesia

== ENCOUNTER → 2022-08-26 | Outpatient (CLI) | payer OTHER ==
[~2022-08-26] MED LIST changes: +FAMO40TA3 PO; +GABA600T4 PO; +LEXA1TAB PO; +MAGN240P PO; +PANT20TA6 PO; +RIZA10TA58 PO; +SETL1TAB PO; +TIZA10TA PO; +VENTAER INH; +VITMTA PO
== END ==
LOC: M LABSMTC 10:01
PROVIDERS: ATTEND Anesthesiology
DX: Z01.812 Encounter for preprocedural laboratory examination (principal); Z11.52 Encounter for screening for COVID-19

== ENCOUNTER 2022-08-29 12:36 | Day surgery (SDC) | payer OTHER ==
[~2022-08-29] VITALS: Ht 162.6 cm; Wt 81.6 kg
[~2022-08-29 12:36] MED LIST changes: +NS 1,000 ML IV ONE
[2022-08-29] MEDS ORDERED: fentaNYL 100 MCG/2 ML INJECTION As Ordered ONE (14:54)
[2022-08-29] MEDS ORDERED: LIDOCAINE 2% 100MG/5ML SDV (FOR ANES.) As Ordered ONE (14:58)
[2022-08-29] MEDS ORDERED: propofoL 200 MG/20 ML VIAL As Ordered ONE (14:58)
[2022-08-29 15:45] VITALS: BP 117/56
== END 2022-08-29 16:20 | disposition home or self-care (01) ==
LOC: M OPP 12:36
PROVIDERS: ATTEND Internal Medicine Gastroenterology
DX: K63.5 Polyp of colon (principal); K59.00 Constipation, unspecified; K20.80 Other esophagitis without bleeding; Z98.0 Intestinal bypass and anastomosis status; Z79.51 Long term (current) use of inhaled steroids; Z79.899 Other long term (current) drug therapy; Z88.6 Allergy status to analgesic agent; Z91.011 Allergy to milk products; F32.9 Major depressive disorder, single episode, unspecified; F41.9 Anxiety disorder, unspecified; J45.909 Unspecified asthma, uncomplicated; G43.909 Migraine, unspecified, not intractable, without status migrainosus; Z86.14 Personal history of Methicillin resistant Staphylococcus aureus infection
CPT/HCPCS: 43239; 45380; 88305; J3010

== ENCOUNTER 2023-03-09 18:04 | Emergency (ER) | payer OTHER ==
[~2023-03-09] VITALS: Ht 162.6 cm; Wt 91.6 kg
[~2023-03-09 18:04] MED LIST changes: +FLUT50SP17; -FLUTISP; -NS 1,000 ML IV ONE
[2023-03-09 18:05] VITALS: BP 145/76
[2023-03-09] MEDS ORDERED: AMIT25TA17 (18:17)
[2023-03-09] MEDS ORDERED: VENL75CA47 (18:17)
[2023-03-09] MEDS ORDERED: BACT800T5 PO (18:46)
== END 2023-03-09 19:00 | disposition home or self-care (01) ==
LOC: M ED 18:04
DX: L03.116 Cellulitis of left lower limb (principal); Z88.6 Allergy status to analgesic agent; E73.9 Lactose intolerance, unspecified; Z79.899 Other long term (current) drug therapy

== ENCOUNTER → 2023-03-31 | Outpatient (CLI) | payer OTHER ==
[~2023-03-31] MED LIST changes: +AMIT25TA17; +VENL75CA47
== END ==
LOC: M RAD 15:20
PROVIDERS: ATTEND Nurse Practitioner Family
DX: M25.532 Pain in left wrist (principal)

== ENCOUNTER → 2023-04-17 | Outpatient (CLI) | payer OTHER ==
[2023-04-17 10:42] LABS: BASO % 0.2 % (0.0-1.0); EOS # 0.1 10^3/uL (0.0-0.5); EOS % 1.5 % (0.0-3.0); HEMOGLOBIN 12.6 g/dl (12.0-15.5); LYMPH # 2.8 10^3/uL (1.5-5.0); LYMPH % 46.4 % (24.0-44.0); MEAN CORPUSCULAR HEMOGLOBIN 34.4 pg (27.0-33.0); MEAN CORPUSCULAR HGB CONC 32.3 g/dl (32.0-36.5); MEAN CORPUSCULAR VOLUME 106.6 fl (80.0-96.0); MONO # 0.6 10^3/uL (0.0-0.8); MONO % 9.9 % (2.0-8.0); NEUTROPHILS # 2.5 10^3/uL (1.5-8.5); NEUTROPHILS % 41.7 % (36.0-66.0); PLATELET COUNT, AUTOMATED 209 10^3/uL (150-450); RED BLOOD COUNT 3.66 10^6/uL (4.00-5.40); WHITE BLOOD COUNT 6.1 10^3/uL (4.0-10.0)
[2023-04-17 10:58] LABS: ALBUMIN 3.9 G/DL (3.2-5.2); ALKALINE PHOSPHATASE 40 U/L (46-116); ALT/SGPT 12 U/L (7.0-40); AST/SGOT 11 U/L (<34); BILIRUBIN,TOTAL 0.4 MG/DL (0.3-1.2); BLOOD UREA NITROGEN 14 MG/DL (9-23); CALCIUM LEVEL 9.2 MG/DL (8.5-10.1); CARBON DIOXIDE LEVEL 29 MMOL/L (20-31); CHLORIDE LEVEL 109 MMOL/L (98-107); CREATININE FOR GFR 0.62 MG/DL (0.55-1.30); GLOMERULAR FILTRATION RATE > 60.0 (>58); GLUCOSE, FASTING 80 MG/DL (60-100); SODIUM LEVEL 142 MMOL/L (136-145); TOTAL PROTEIN 6.6 G/DL (5.7-8.2)
== END ==
LOC: M LAB 09:34
PROVIDERS: ATTEND Psychiatry & Neurology Neurology
DX: R51.9 Headache, unspecified (principal)

== ENCOUNTER → 2023-04-24 | Outpatient (CLI) | payer OTHER | LOC: M WHC 08:00 | PROVIDERS: ATTEND Obstetrics & Gynecology | DX: Z12.31 Encounter for screening mammogram for malignant neoplasm of breast (principal) ==

== ENCOUNTER → 2023-08-17 | Outpatient (CLI) | payer OTHER ==
[~2023-08-17] MED LIST changes: -AMIT25TA17; +AMIT25TA19; -GABA-283 PO; +GABA-284 PO
== END ==
LOC: M RAD 11:12
PROVIDERS: ATTEND Nurse Practitioner Family
DX: M19.071 Primary osteoarthritis, right ankle and foot (principal)

== ENCOUNTER → 2024-03-30 | Outpatient (REF) | payer OTHER ==
[~2024-03-30] MED LIST changes: -FLUT50SP17; +FLUTISP
[2024-03-30 12:43] LABS: BASO % 0.3 % (0.0-1.0); EOS # 0.1 10^3/uL (0.0-0.5); EOS % 1.3 % (0.0-3.0); HEMATOCRIT 38.8 % (36.0-47.0); HEMOGLOBIN 12.9 g/dl (12.0-15.5); LYMPH # 2.3 10^3/uL (1.5-5.0); LYMPH % 39.3 % (24.0-44.0); MEAN CORPUSCULAR HEMOGLOBIN 34.2 pg (27.0-33.0); MEAN CORPUSCULAR HGB CONC 33.2 g/dl (32.0-36.5); MEAN CORPUSCULAR VOLUME 102.9 fl (80.0-96.0); MONO # 0.4 10^3/uL (0.0-0.8); MONO % 7.2 % (2.0-8.0); NEUTROPHILS # 3.1 10^3/uL (1.5-8.5); NEUTROPHILS % 51.7 % (36.0-66.0); PLATELET COUNT, AUTOMATED 228 10^3/uL (150-450); RED BLOOD COUNT 3.77 10^6/uL (4.00-5.40)
[2024-03-30 13:00] LABS: HEMOGLOBIN A1c 5.3 % (4.0-6.0)
[2024-03-30 13:25] LABS: THYROID STIMULATING HORMONE 1.343 uIU/ML (0.55-4.78); TOTAL 25(OH) VITAMIN D 29.3 NG/ML (20.0-100.0)
[2024-03-30 13:33] LABS: ALBUMIN 3.7 G/DL (3.2-5.2); ALKALINE PHOSPHATASE 48 U/L (46-116); ALT/SGPT 10 U/L (7.0-40); AST/SGOT 15 U/L (<34); BILIRUBIN,TOTAL 0.5 MG/DL (0.3-1.2); BLOOD UREA NITROGEN 15 MG/DL (9-23); CALCIUM LEVEL 9.5 MG/DL (8.5-10.1); CARBON DIOXIDE LEVEL 26 MMOL/L (20-31); CHLORIDE LEVEL 107 MMOL/L (98-107); CHOLESTEROL LEVEL 208 MG/DL (<200); CHOLESTEROL RISK RATIO 2.39 (<5); CREATININE FOR GFR 0.77 MG/DL (0.55-1.30); GLOMERULAR FILTRATION RATE > 60.0 (>58); GLUCOSE, FASTING 84 MG/DL (60-100); LDL CHOLESTEROL 99.6 MG/DL (<100); POTASSIUM SERUM 4.5 MMOL/L (3.5-5.1); SODIUM LEVEL 140 MMOL/L (136-145); TOTAL PROTEIN 6.6 G/DL (5.7-8.2); TRIGLYCERIDES LEVEL 107 MG/DL (<150)
== END ==
LOC: M LAB REF 11:27
PROVIDERS: ATTEND Nurse Practitioner Family
DX: E66.9 Obesity, unspecified (principal); E55.9 Vitamin D deficiency, unspecified

== ENCOUNTER → 2024-05-04 | Outpatient (CLI) | payer OTHER | LOC: M WHC 08:34 | PROVIDERS: ATTEND Obstetrics & Gynecology | DX: Z12.31 Encounter for screening mammogram for malignant neoplasm of breast (principal); R92.313 Mammographic fatty tissue density, bilateral breasts ==

== ENCOUNTER → 2024-09-07 | Outpatient (CLI) | payer OTHER ==
[~2024-09-07] MED LIST changes: -CYCL5TAB PO; +CYCL5TAB4 PO; +GABA-1172; +GABA-1490 PO; -GABA-282; -GABA600T4 PO
[2024-09-07 12:14] LABS: BASO % 0.4 % (0.0-1.0); EOS # 0.2 10^3/uL (0.0-0.5); EOS % 2.2 % (0.0-3.0); HEMATOCRIT 35.8 % (36.0-47.0); HEMOGLOBIN 12.1 g/dl (12.0-15.5); LYMPH # 2.4 10^3/uL (1.5-5.0); LYMPH % 30.2 % (24.0-44.0); MEAN CORPUSCULAR HEMOGLOBIN 34.2 pg (27.0-33.0); MEAN CORPUSCULAR HGB CONC 33.8 g/dl (32.0-36.5); MEAN CORPUSCULAR VOLUME 101.1 fl (80.0-96.0); MONO # 0.6 10^3/uL (0.0-0.8); MONO % 7.4 % (2.0-8.0); NEUTROPHILS # 4.7 10^3/uL (1.5-8.5); NEUTROPHILS % 59.4 % (36.0-66.0); PLATELET COUNT, AUTOMATED 222 10^3/uL (150-450); RED BLOOD COUNT 3.54 10^6/uL (4.00-5.40); WHITE BLOOD COUNT 7.8 10^3/uL (4.0-10.0)
== END ==
LOC: M RAD 11:09
PROVIDERS: ATTEND Nurse Practitioner Family
DX: R05.3 Chronic cough (principal)

== ENCOUNTER → 2024-11-02 | Outpatient (REF) | payer OTHER ==
[2024-11-02 21:41] LABS: BASO % 0.4 % (0.0-1.0); EOS # 0.1 10^3/uL (0.0-0.5); EOS % 1.4 % (0.0-3.0); HEMATOCRIT 37.7 % (36.0-47.0); HEMOGLOBIN 12.1 g/dl (12.0-15.5); LYMPH # 2.6 10^3/uL (1.5-5.0); LYMPH % 31.6 % (24.0-44.0); MEAN CORPUSCULAR HEMOGLOBIN 33.4 pg (27.0-33.0); MEAN CORPUSCULAR HGB CONC 32.1 g/dl (32.0-36.5); MEAN CORPUSCULAR VOLUME 104.1 fl (80.0-96.0); MONO # 0.6 10^3/uL (0.0-0.8); MONO % 6.6 % (2.0-8.0); NEUTROPHILS % 59.9 % (36.0-66.0); PLATELET COUNT, AUTOMATED 215 10^3/uL (150-450); RED BLOOD COUNT 3.62 10^6/uL (4.00-5.40); WHITE BLOOD COUNT 8.4 10^3/uL (4.0-10.0)
[2024-11-02 22:10] LABS: ALBUMIN 3.7 G/DL (3.2-5.2); ALKALINE PHOSPHATASE 51 U/L (35-104); ALT/SGPT 23 U/L (7.0-40); AST/SGOT 28 U/L (<34); BILIRUBIN,TOTAL 0.2 MG/DL (0.3-1.2); BLOOD UREA NITROGEN 17 MG/DL (9-23); CALCIUM LEVEL 8.9 MG/DL (8.5-10.1); CARBON DIOXIDE LEVEL 28 MMOL/L (20-31); CHLORIDE LEVEL 106 MMOL/L (98-107); CHOLESTEROL LEVEL 202 MG/DL (<200); CHOLESTEROL RISK RATIO 2.33 (<5); CREATININE FOR GFR 0.75 MG/DL (0.55-1.30); GLOMERULAR FILTRATION RATE > 60.0 (>58); GLUCOSE, FASTING 162 MG/DL (60-100); HDL CHOLESTEROL 86.4 MG/DL (>40); LDL CHOLESTEROL 85.8 MG/DL (<100); NON-HDL-C 115.6 MG/DL; POTASSIUM SERUM 4.3 MMOL/L (3.5-5.1); SODIUM LEVEL 142 MMOL/L (136-145); TOTAL PROTEIN 6.7 G/DL (5.7-8.2); TRIGLYCERIDES LEVEL 149 MG/DL (<150)
[2024-11-02 22:21] LABS: HEMOGLOBIN A1c 5.2 % (4.0-6.0)
== END ==
LOC: M LAB REF 20:54
PROVIDERS: ATTEND Nurse Practitioner Family
DX: E66.9 Obesity, unspecified (principal)

== ENCOUNTER → 2024-11-25 | Outpatient (CLI) | payer OTHER | LOC: M PLAIMG 12:28 | PROVIDERS: ATTEND Pain Medicine Interventional Pain Medicine | DX: M54.16 Radiculopathy, lumbar region (principal); M51.360 Other intervertebral disc degeneration, lumbar region with discogenic back pain only ==

== ENCOUNTER → 2025-02-07 | Outpatient (CLI) | payer OTHER | LOC: M CARPUL 14:37 | PROVIDERS: ATTEND Physician Assistant | DX: R06.02 Shortness of breath (principal) ==

== ENCOUNTER → 2025-02-14 | Outpatient (CLI) | payer OTHER ==
[~2025-02-14] MED LIST changes: +METHACHOLINE KIT (6 VIAL.NEB PREMIX) INH ONE
== END ==
LOC: M CARPUL 14:03
PROVIDERS: ATTEND Physician Assistant
DX: R06.02 Shortness of breath (principal)
CPT/HCPCS: 94070; 95070; J7674

== ENCOUNTER → 2025-02-17 | Outpatient (CLI) | payer OTHER ==
[~2025-02-17] MED LIST changes: -METHACHOLINE KIT (6 VIAL.NEB PREMIX) INH ONE
[2025-02-17 07:32] LABS: BASO % 0.3 % (0.0-1.0); EOS # 0.1 10^3/uL (0.0-0.5); EOS % 1.9 % (0.0-3.0); HEMATOCRIT 37.1 % (36.0-47.0); HEMOGLOBIN 12.3 g/dl (12.0-15.5); LYMPH # 2.8 10^3/uL (1.5-5.0); LYMPH % 44.1 % (24.0-44.0); MEAN CORPUSCULAR HGB CONC 33.2 g/dl (32.0-36.5); MEAN CORPUSCULAR VOLUME 102.5 fl (80.0-96.0); MONO # 0.4 10^3/uL (0.0-0.8); MONO % 6.6 % (2.0-8.0); NEUTROPHILS # 2.9 10^3/uL (1.5-8.5); NEUTROPHILS % 46.8 % (36.0-66.0); PLATELET COUNT, AUTOMATED 199 10^3/uL (150-450); RED BLOOD COUNT 3.62 10^6/uL (4.00-5.40); WHITE BLOOD COUNT 6.2 10^3/uL (4.0-10.0)
[2025-02-17 07:57] LABS: ALBUMIN 3.4 G/DL (3.2-5.2); BILIRUBIN,TOTAL 0.3 MG/DL (0.3-1.2); CALCIUM LEVEL 9.2 MG/DL (8.5-10.1); CREATININE FOR GFR 0.84 MG/DL (0.55-1.30); GLOMERULAR FILTRATION RATE 87.3 (>58); POTASSIUM SERUM 4.3 MMOL/L (3.5-5.1); TOTAL PROTEIN 6.3 G/DL (5.7-8.2)
== END ==
LOC: M LAB 07:05
PROVIDERS: ATTEND Psychiatry & Neurology Neurology
DX: R51.9 Headache, unspecified (principal)

== ENCOUNTER → 2025-06-21 | Outpatient (CLI) | payer OTHER | LOC: M WHC 13:45 | PROVIDERS: ATTEND Obstetrics & Gynecology | DX: Z12.31 Encounter for screening mammogram for malignant neoplasm of breast (principal) ==

== ENCOUNTER → 2025-07-05 | Outpatient (REF) | payer OTHER ==
[2025-07-05 15:55] LABS: BASO # 0.0 10^3/uL (0.0-0.2); BASO % 0.3 % (0.0-1.0); EOS # 0.1 10^3/uL (0.0-0.5); EOS % 0.8 % (0.0-3.0); LYMPH # 2.6 10^3/uL (1.5-5.0); LYMPH % 40.7 % (24.0-44.0); MONO # 0.5 10^3/uL (0.0-0.8); MONO % 8.1 % (2.0-8.0); NEUTROPHILS # 3.2 10^3/uL (1.5-8.5); NEUTROPHILS % 49.9 % (36.0-66.0); PLATELET COUNT, AUTOMATED 226 10^3/uL (150-450)
[2025-07-05 16:00] LABS: ALT/SGPT 26 U/L (7.0-40); AST/SGOT 32 U/L (<34); CALCIUM LEVEL 9.0 MG/DL (8.5-10.1); CARBON DIOXIDE LEVEL 26 MMOL/L (20-31); CHLORIDE LEVEL 107 MMOL/L (98-107); CREATININE FOR GFR 0.78 MG/DL (0.55-1.30); GLOMERULAR FILTRATION RATE > 90.0 (>58); POTASSIUM SERUM 3.8 MMOL/L (3.5-5.1); SODIUM LEVEL 139 MMOL/L (136-145)
== END ==
LOC: M LAB REF 11:54
PROVIDERS: ATTEND Student in an Organized Health Care Education/Training Program
DX: R10.9 Unspecified abdominal pain (principal); R19.7 Diarrhea, unspecified

== ENCOUNTER → 2025-07-11 | Outpatient (CLI) | payer OTHER | LOC: M RAD 07:09 | PROVIDERS: ATTEND Student in an Organized Health Care Education/Training Program | DX: K59.00 Constipation, unspecified (principal) ==

== ENCOUNTER → 2025-07-13 | Outpatient (CLI) | payer OTHER | LOC: M PLAIMG 14:12 | PROVIDERS: ATTEND Student in an Organized Health Care Education/Training Program | DX: R06.02 Shortness of breath (principal) ==

== ENCOUNTER → 2025-07-13 | Outpatient (CLI) | payer OTHER ==
[~2025-07-13] MED LIST changes: +ISOVUE-370 76% 100 ML VIAL As Ordered ONE
== END ==
LOC: M RAD 16:19
PROVIDERS: ATTEND Student in an Organized Health Care Education/Training Program
DX: R10.13 Epigastric pain (principal)
CPT/HCPCS: 74170; Q9967

== ENCOUNTER → 2025-07-25 | Outpatient (REF) | payer OTHER ==
[~2025-07-25] MED LIST changes: -ISOVUE-370 76% 100 ML VIAL As Ordered ONE
[2025-07-25 13:12] LABS: BASO # 0.0 10^3/uL (0.0-0.2); BASO % 0.3 % (0.0-1.0); EOS # 0.1 10^3/uL (0.0-0.5); EOS % 0.8 % (0.0-3.0); LYMPH # 2.5 10^3/uL (1.5-5.0); LYMPH % 38.7 % (24.0-44.0); MONO # 0.5 10^3/uL (0.0-0.8); MONO % 7.7 % (2.0-8.0); NEUTROPHILS # 3.4 10^3/uL (1.5-8.5); NEUTROPHILS % 52.2 % (36.0-66.0); PLATELET COUNT, AUTOMATED 222 10^3/uL (150-450)
[2025-07-25 14:30] LABS: ALT/SGPT 10.0 U/L (7.0-40); AST/SGOT 20.0 U/L (<34); CALCIUM LEVEL 9.0 MG/DL (8.5-10.1); CARBON DIOXIDE LEVEL 27.0 MMOL/L (20-31); CHLORIDE LEVEL 105.0 MMOL/L (98-107); CREATININE FOR GFR 0.84 MG/DL (0.55-1.30); GLOMERULAR FILTRATION RATE 87.3 (>58); IRON (FE) 68.0 UG/DL (50-170); POTASSIUM SERUM 4.6 MMOL/L (3.5-5.1); SODIUM LEVEL 139.0 MMOL/L (136-145)
[2025-07-25 14:31] LABS: VITAMIN B12 LEVEL 226.0 PG/ML (211-911)
== END ==
LOC: M LAB REF 12:39
PROVIDERS: ATTEND Student in an Organized Health Care Education/Training Program
DX: R06.2 Wheezing (principal); R53.83 Other fatigue

== ENCOUNTER → 2025-08-03 | Outpatient (CLI) | payer OTHER | LOC: M RAD 07:20 | PROVIDERS: ATTEND Student in an Organized Health Care Education/Training Program | DX: R05.1 Acute cough (principal) ==

== ENCOUNTER → 2025-09-07 | Outpatient (CLI) | payer OTHER | LOC: M RAD 07:01 | PROVIDERS: ATTEND Student in an Organized Health Care Education/Training Program | DX: M25.512 Pain in left shoulder (principal) ==